=== PATIENT | female | born 1980 | race Caucasian/White ===

== ENCOUNTER 2020-06-14 20:22 | Emergency (ER) | payer OTHER ==
[~2020-06-14 20:22] MED LIST: ANTIVERT 25MG T25 MG PO; IBUPROFEN600 MG PO; TYLENOL 500 MG500 MG PO; Voltaren Gel 1% TOP
[2020-06-14] MEDS ORDERED: IBU600 MG PO (23:54)
[2020-06-14] MEDS ORDERED: FIORINAL CAPSULE1 EA PO (23:54)
== END 2020-06-15 00:01 | disposition home or self-care (01) ==
LOC: ER1 20:22
DX: G43.909 Migraine, unspecified, not intractable, without status migrainosus (principal); J06.9 Acute upper respiratory infection, unspecified; F17.290 Nicotine dependence, other tobacco product, uncomplicated; Z20.822 Contact with and (suspected) exposure to COVID-19
CPT/HCPCS: 0240U; 70450; 71045; 87081; 87880; 96374; 96375; 99284; J0780; J1200

== ENCOUNTER → 2020-09-03 | Outpatient (CLI) | payer OTHER ==
[~2020-09-03] MED LIST changes: +FIORINAL CAPSULE1 EA PO; +IBU600 MG PO
== END ==
LOC: RAD 15:35
DX: M54.6 Pain in thoracic spine (principal)
CPT/HCPCS: 72070; 72100

== ENCOUNTER → 2021-05-12 | Emergency (ER) | payer BC, OTHER ==
[~2021-05-12] MED LIST changes: +HYDROCODON-ACE1 EAC4 PO
[2021-05-12 05:58] LABS: HEMOGLOBIN 13.1 gm/dl (12.3-15.3); RED BLOOD COUNT 4.53 M/UL (4.00-5.10); WHITE BLOOD COUNT 9.4 K/UL (4.5-11.0)
[2021-05-12 06:24] LABS: BUN/CREATININE RATIO 22 (0-10)
== END | disposition home or self-care (01) ==
LOC: ER1 05:17
PROVIDERS: Physician Assistant
DX: N13.2 Hydronephrosis with renal and ureteral calculous obstruction (principal)
CPT/HCPCS: 80053; 81001; 83690; 84703; 85025; 96374; 96375; 99284; J1885; J2270; J2405; J2550